=== PATIENT | male | born 1980 | race American Indian/Alaskan Native ===

== ENCOUNTER 2021-01-29 21:50 | Emergency (ER) | payer MEDICAID, OTHER ==
--- NOTE | 2021-01-29 23:27 | EDM.PDOCBH ---
ED HPI GENERAL MEDICAL PROBLEM - General Chief Complaint: Behavioral/Psych Stated Complaint: EVAL [facility]IA [facility] Time Seen by Provider: 01/29/21 21:57 Source of Information: Reports: Patient, EMS, RN History Limitations: Reports: No Limitations - History of Present Illness INITIAL COMMENTS - FREE TEXT/NARRATIVE: Presents the emergency room today via EMS and police escort secondary to concerns that he was acting strange at home. Per report it was the grandmother that called in the concern patient does live with his girlfriend. He was seen on Sunday and shortly [place] for psychiatric issues with combative behavior that was reported. Patient states that he seen his grandfather (his grandfather in 2006 per patient report) patient states he was seen his grandfather and his dog's eyes. He is talking somewhat tangentially about this is not making sense. But otherwise does answer questions appropriately is that he is in [place] he denies any suicidal ideation or homicidal ideation he has been calm and cooperative for us here in the emergency room PMH--hx narcotic abuse (percocet), hx alcohol abuse Meds--denies NKDA Tob--1ppd EtOH--reports not recently, does state he has a significant alcohol abuse history Drugs--patient states last use of narcotics (percocet that he snorts) was in August, he does state he smoked marijuana today. denies any methamphetami ne/heroin/cocaine use/abuse history Patient has not had COVID immunization by report right foot Pain Score (Numeric/FACES): 6 - Related Data Allergies Allergy/AdvReac Type Severity Reaction Status Date / Time No Known Allergies Allergy Verified 01/29/21 22:09 Home Meds: Home Meds NK [No Known Home Meds] 01/29/21 [History] Past Medical History Musculoskeletal History: Reports: Fracture, Other (See Below) Other Musculoskeletal History: right arm fx Psychiatric History: Reports: Hallucinations Social & Family History - Tobacco Use Tobacco Use Status *Q: Current Every Day Tobacco User Years of Tobacco use: 25 Packs/Tins Daily: 1 - Recreational Drug Use Recreational Drug Use: Yes Drug Use in Last 12 Months: Yes Recreational Drug Type: Reports: Marijuana/Hashish ED ROS GENERAL - Review of Systems Review Of Systems: Comprehensive ROS is negative, except as noted in HPI. Constitutional: Reports: No Symptoms HEENT: Reports: No Symptoms Respiratory: Reports: No Symptoms Cardiovascular: Reports: No Symptoms Endocrine: Reports: No Symptoms GI/Abdominal: Reports: No Symptoms : Reports: No Symptoms Musculoskeletal: Reports: No Symptoms Skin: Reports: No Symptoms Neurological: Reports: No Symptoms Psychiatric: Reports: Hallucinations. Denies: Homicidal Ideation, Suicidal Ideation Hematologic/Lymphatic: Reports: No Symptoms Immunologic: Reports: No Symptoms ED EXAM, BEHAVIORAL HEALTH - Physical Exam Exam: See Below Exam Limited By: No Limitations General Appearance: Alert, WD/WN, No Apparent Distress Eye Exam: Bilateral Eye: EOMI, Normal Inspection, PERRL Ears: Normal External Exam, Hearing Grossly Normal Nose: Normal Inspection Throat/Mouth: Normal Inspection, Normal Oropharynx, Normal Voice, No Airway Compromise Head: Atraumatic, Normocephalic Neck: Normal Inspection, Supple, Non-Tender, Full Range of Motion Respiratory/Chest: No Respiratory Distress, Lungs Clear, Normal Breath Sounds, Chest Non-Tender Cardiovascular: Normal Peripheral Pulses, Regular Rate, Rhythm, No Edema, No Murmur GI/Abdominal: Normal Bowel Sounds, Soft, Non-Tender (Male) Exam: Deferred Rectal (Males) Exam: Deferred Back Exam: Normal Inspection, Full Range of Motion Extremities: Normal Range of Motion, Normal Capillary Refill Neurological: Alert, Normal Mood/Affect, Normal Gait, No Motor/Sensory Deficits, Oriented x 3 Psychiatric: Alert, Normal Affect, Normal Cognition Skin Exam: Warm, Dry, Intact, Normal color COURSE, BEHAVIORAL HEALTH COMP - Course Vital Signs: Last Vital Signs Temp 99.7 F 01/29/21 22:12 Pulse 107 H 01/29/21 22:12 Resp 13 01/29/21 22:12 BP 172/103 H 01/29/21 22:12 Pulse Ox 99 01/29/21 22:12 Orders, Labs, Meds: Active Orders 24 hr Category Date Time Status Regular Diet [DIET] Diet 01/29/21 Breakfast Active Chest 1V Frontal [CR] Stat Exams 01/29/21 23:16 Taken Laboratory Tests 01/29/21 01/29/21 01/29/21 Range/Units 22:10 22:10 22:10 WBC 20.7 H (4.5-11.0) K/uL RBC 5.33 (4.30-5.90) M/uL Hgb 15.0 (12.0-15.0) g/dL Hct 45.9 (40.0-54.0) % MCV 86 (80-98) fL MCH 28 (27-31) pg MCHC 33 (32-36) % Plt Count 381 (150-400) K/uL Neut % (Auto) 78.7 H (36-66) % Lymph % (Auto) 13.3 L (24-44) % Mccormick % (Auto) 7.4 H (2-6) % Eos % (Auto) 0.4 L (2-4) % Baso % (Auto) 0.2 (0-1) % Sodium 136 L (140-148) mmol/L Potassium 4.0 (3.6-5.2) mmol/L Chloride 102 (100-108) mmol/L Carbon Dioxide 27 (21-32) mmol/L Anion Gap 11.0 (5.0-14.0) mmol/L BUN 15 (7-18) mg/dL Creatinine 1.0 (0.8-1.3) mg/dL Est Cr Clr Drug Dosing 101.39 mL/min Estimated GFR (MDRD) > 60 (>60) Glucose 102 (74-106) mg/dL Calcium 9.0 (8.5-10.1) mg/dL Total Bilirubin 0.3 (0.2-1.0) mg/dL AST 20 (15-37) U/L ALT 40 (12-78) U/L Alkaline Phosphatase 88 (46-116) U/L Total Protein 7.5 (6.4-8.2) g/dL Albumin 3.6 (3.4-5.0) g/dL Globulin 3.9 H (2.3-3.5) g/dL Albumin/Globulin Ratio 0.9 L (1.2-2.2) Free T4 1.54 H (0.76-1.46) ng/dL Urine Color (YELLOW) Urine Appearance (CLEAR) Urine pH (5.0-8.0) Ur Specific Bentley (1.008-1.030) Urine Protein (NEGATIVE) mg/dL Urine Glucose (UA) (NEGATIVE) mg/dL Urine Ketones (NEGATIVE) mg/dL Urine Occult Blood (NEGATIVE) Urine Nitrite (NEGATIVE) Urine Bilirubin (NEGATIVE) Urine Urobilinogen (0.2-1.0) EU/dL Ur Leukocyte Esterase (NEGATIVE) Urine RBC (0-5) Urine WBC (0-5) Ur Epithelial Cells Amorphous Sediment Urine Bacteria Urine Mucus Urine Opiates Screen (NEGATIVE) Ur Oxycodone Screen (NEGATIVE) Urine Methadone Screen (NEGATIVE) Ur Propoxyphene Screen (NEGATIVE) Ur Barbiturates Screen (NEGATIVE) Ur Tricyclics Screen (NEGATIVE) Ur Phencyclidine Scrn (NEGATIVE) Ur Amphetamine Screen (NEGATIVE) U Methamphetamines Scrn (NEGATIVE) Urine MDMA Screen (NEGATIVE) U Benzodiazepines Scrn (NEGATIVE) U Cocaine Metab Screen (NEGATIVE) U Marijuana (THC) Screen (NEGATIVE) Ethyl Alcohol < 3 mg/dL SARS-CoV-2 RNA (ELI) (NEGATIVE) 01/29/21 01/29/21 01/29/21 Range/Units 22:15 22:15 22:15 WBC (4.5-11.0) K/uL RBC (4.30-5.90) M/uL Hgb (12.0-15.0) g/dL Hct (40.0-54.0) % MCV (80-98) fL MCH (27-31) pg MCHC (32-36) % Plt Count (150-400) K/uL Neut % (Auto) (36-66) % Lymph % (Auto) (24-44) % Mccormick % (Auto) (2-6) % Eos % (Auto) (2-4) % Baso % (Auto) (0-1) % Sodium (140-148) mmol/L Potassium (3.6-5.2) mmol/L Chloride (100-108) mmol/L Carbon Dioxide (21-32) mmol/L Anion Gap (5.0-14.0) mmol/L BUN (7-18) mg/dL Creatinine (0.8-1.3) mg/dL Est Cr Clr Drug Dosing mL/min Estimated GFR (MDRD) (>60) Glucose (74-106) mg/dL Calcium (8.5-10.1) mg/dL Total Bilirubin (0.2-1.0) mg/dL AST (15-37) U/L ALT (12-78) U/L Alkaline Phosphatase (46-116) U/L Total Protein (6.4-8.2) g/dL Albumin (3.4-5.0) g/dL Globulin (2.3-3.5) g/dL Albumin/Globulin Ratio (1.2-2.2) Free T4 (0.76-1.46) ng/dL Urine Color Yellow (YELLOW) Urine Appearance Clear (CLEAR) Urine pH 6.0 (5.0-8.0) Ur Specific Bentley 1.025 (1.008-1.030) Urine Protein Negative (NEGATIVE) mg/dL Urine Glucose (UA) Negative (NEGATIVE) mg/dL Urine Ketones Negative (NEGATIVE) mg/dL Urine Occult Blood Negative (NEGATIVE) Urine Nitrite Negative (NEGATIVE) Urine Bilirubin Negative (NEGATIVE) Urine Urobilinogen 0.2 (0.2-1.0) EU/dL Ur Leukocyte Esterase Negative (NEGATIVE) Urine RBC 0-5 (0-5) Urine WBC 0-5 (0-5) Ur Epithelial Cells Not seen Amorphous Sediment Not seen Urine Bacteria Rare Urine Mucus Many Urine Opiates Screen Negative (NEGATIVE) Ur Oxycodone Screen Negative (NEGATIVE) Urine Methadone Screen Negative (NEGATIVE) Ur Propoxyphene Screen Negative (NEGATIVE) Ur Barbiturates Screen Negative (NEGATIVE) Ur Tricyclics Screen Negative (NEGATIVE) Ur Phencyclidine Scrn Negative (NEGATIVE) Ur Amphetamine Screen Negative (NEGATIVE) U Methamphetamines Scrn Negative (NEGATIVE) Urine MDMA Screen Negative (NEGATIVE) U Benzodiazepines Scrn Negative (NEGATIVE) U Cocaine Metab Screen Negative (NEGATIVE) U Marijuana (THC) Screen Presumptive positive H (NEGATIVE) Ethyl Alcohol mg/dL SARS-CoV-2 RNA (ELI) Negative (NEGATIVE) Re-Assessment/Re-Exam: 2315--labs reviewed, noted for elevated WBC-20.7 w/ neutrophils 78.7%. also noted to have mild elevation of free T4-1.54. UA negative, CMP negative, UDS + marijuana as he reports, negative EtOH. will obtain chest film to r/o any respiratory illness/findings that may be related to elevated WBC. if negative then will be medically cleared for mobile crisis evaluation. it appears based on negative psychiatric history reported, hx substance abuse, hx alcohol abuse and today's reported use of marijuana that this last item is cause of his behavior. marijuana may have been laced with an unknown substance or this is just his response to marijuana. 8010--ER notes from [place] on 25 January in which patient presented secondary to unusual behavior in which law enforcement was contacted as well as patient being transported to that facility via EMS and what was notated is a nonverbal status after being agitated and aggressive as well as having to have been tased. It is noted on their evaluation that it was negative other than elevated white blood cell count/leukocytosis he had a urine drug screen positive for Suboxone and THC and elevated CK level. Also noted that patient did wake up and while he was in the emergency room he told the ER staff that he was seeing monsters and everything in the color purple he then jumped out of his bed pulled off his IV and ran through the night ER ER department naked salting some ER employees requiring medication and four-point restraint for control of his acute psychotic event. He was then transferred to [facility] in which she was admitted and discharged on per family's report. Patient's mother and girlfriend are out in the emergency room waiting area today I did go out and discussed with him their concerns they state that his behavior continues to be erratic and unusual although he is somewhat calm [place] in nature compared to previous episodes they felt that he was starting to escalate which is why they called law enforcement and EMS to have him brought in for further evaluation. As I have noted in my exam they report that he is having hallucinations seeing things and talking erratically. Not aware of what transpired during hospitalization at [place]. 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 But no further recommendations. He did verbalize understanding of what our plan of care is at this time we are waiting mobile crisis evaluation and recommendations 0019--chest film 1V no acute findings of concern, final radiology reading is pending at this time. negative COVID swab. at this time is medically cleared for mobile crisis evaluation. [employer] notified Medical Clearance: 01/30/21 00:21 medically cleared for mobile crisis/further psychiatric evaluation Discharge vs Psych Eval/Treatment:: 01/30/21 02:31 no response from mobile crisis after multiple attempts over the last 3 hours. patient is not suicidal. he continues to state this on repeat questioning by myself and [employer]. He states he is ready to go home. he is no longer exhibiting signs of hallucinations, is not combative in nature. he is restless coming out of the room multiple times to see when he can leave. easily redirected back to room, aware that his family is on the way. at this time will d/c to family. they have f/u in [place] with PCM on Sunday. will instruct patient's girlfriend at time of her arrival that they can contact mobile crisis directly for phone interview if needed or may return to the ER for further evaluation of concerns if needed sooner Departure - Departure Time of Disposition: 02:36 Disposition: Home, Self-Care 01 Clinical Impression: Hallucinations, Marijuana use - Discharge Information *PRESCRIPTION DRUG MONITORING PROGRAM REVIEWED*: Not Applicable *COPY OF PRESCRIPTION DRUG MONITORING REPORT IN PATIENT ROBBY: Not Applicable Instructions: Preventing Marijuana Misuse, Psychosis Referrals: PCP,None [Primary Care Provider] - Forms: ED Department Discharge Additional Instructions: Was noted on report and here in the emergency room he did admit to seeing his grandfather was having hallucinations. There were no acute findings medically other than leukocytosis which in comparison to previous ER visit in [place] several days ago is relatively unchanged. Have attempted to provide mobile crisis interview with no success after 3 hours. At this time I have discharged you to home. You guys may contact mobile [employer] yourselves for telephone interviews as well as you have an appointment scheduled in [place] with your primary care provider on Sunday please keep that appointment. If further concerns or changes occur in behavior then return to the emergency room for further evaluation Sepsis Event Note (ED) - Evaluation Sepsis Screening Result: No Definite Risk - Focused Exam Vital Signs: Vital Signs Temp Pulse Resp BP Pulse Ox 01/29/21 22:12 99.7 F 107 H 13 172/103 H 99 01/29/21 22:10 99.7 F 107 H 13 172/103 H 99 - My Orders Last 24 Hours: My Active Orders 01/29/21 Breakfast Regular Diet [DIET] 01/29/21 23:16 Chest 1V Frontal [CR] Stat - Assessment/Plan Last 24 Hours: My Active Orders 01/29/21 Breakfast Regular Diet [DIET] 01/29/21 23:16 Chest 1V Frontal [CR] Stat
--- NOTE | 2021-01-31 09:48 | CR ---
CHEST: Portable 01/29/2021 at 11:44 PM CLINICAL HISTORY:Elevated white count COMPARISON:None FINDINGS: The heart size, pulmonary vascularity and hilar structures are normal. No infiltrate effusion or pneumothorax is seen. IMPRESSION: No acute cardiopulmonary process.
== END 2021-01-30 02:50 | disposition home or self-care (01) ==
LOC: JP.ED 21:50
DX: R44.3 Hallucinations, unspecified (principal); F12.90 Cannabis use, unspecified, uncomplicated; Z72.0 Tobacco use; Z20.822 Contact with and (suspected) exposure to COVID-19
CPT/HCPCS: 36415; 71045; 71045-26; 80053; 80305-QW; 80307; 81001; 84439; 85025; 99285-25; U0002

== ENCOUNTER 2023-07-12 10:54 | Emergency (ER) | payer MEDICAID, OTHER ==
[2023-07-12 11:15] LABS: BASOPHILS ABSOLUTE AUTO 0.04 K/uL (0.00-0.10); BASOPHILS PERCENT AUTO 0.2 % (0.1-1.3); EOSINOPHILS ABSOLUTE AUTO 0.09 K/uL (0.00-0.40); EOSINOPHILS PERCENT AUTO 0.5 % (0.0-5.4); HEMATOCRIT 43.6 % (38.4-49.7); HEMOGLOBIN 14.6 g/dL (12.9-16.9); IMMATURE GRAN ABSOLUTE AUTO 0.11 K/uL (0.00-0.23); IMMATURE GRAN PERCENT AUTO 0.7 % (0.0-0.7); LYMPHOCYTES ABSOLUTE AUTO 4.34 K/uL (0.8-3.3); LYMPHOCYTES PERCENT AUTO 25.7 % (11.4-47.7); MEAN CORPUSCULAR HEMOGLOBIN 27.7 pg (31.6-35.5); MEAN CORPUSCULAR HGB CONC 33.5 g/dL (31.6-35.5); MEAN CORPUSCULAR VOLUME 82.6 fL (81.4-99.0); MONOCYTES ABSOLUTE AUTO 0.74 K/uL (0.20-0.90); MONOCYTES PERCENT AUTO 4.4 % (3.3-12.6); NEUTROPHILS PERCENT AUTO 68.5 % (40.0-78.1); PLATELET COUNT,PLT 344 K/uL (130-375); RED BLOOD CELL COUNT 5.28 M/uL (4.14-5.76); WHITE BLOOD CELL COUNT,WBC 16.9 K/uL (3.2-11.0)
[2023-07-12 11:20] LABS: APPEARANCE,URINE SLIGHTLY CLOUDY (CLEAR); BILIRUBIN,URINE NEGATIVE (NEGATIVE); COLOR,URINE YELLOW (YELLOW); GLUCOSE,URINE NEGATIVE (NEGATIVE); KETONES,URINE NEGATIVE (NEGATIVE); LEUKOCYTE ESTERASE,URINE NEGATIVE (NEGATIVE); NITRITE,URINE NEGATIVE (NEGATIVE); OCCULT BLOOD,URINE NEGATIVE (NEGATIVE); PH,URINE 5.5 (5.0-8.0); PROTEIN,URINE NEGATIVE (NEGATIVE); UROBILINOGEN,URINE 0.2 EU/dL (0.2-1.0)
[2023-07-12 11:26] LABS: AMPHETAMINES SCREEN, URINE NEGATIVE (NEGATIVE); BARBITURATE SCREEN,URINE NEGATIVE (NEGATIVE); BENZODIAZEPINES SCREEN,URINE NEGATIVE (NEGATIVE); METHADONE SCREEN, URINE NEGATIVE (NEGATIVE); METHAMPHETAMINES SCREEN, URINE NEGATIVE (NEGATIVE); OXYCODONE SCREEN,URINE NEGATIVE (NEGATIVE); PROPOXYPHENE SCREEN,URINE NEGATIVE (NEGATIVE)
[2023-07-12 11:27] LABS: THC SCREEN,URINE 50 NG/ML PRESUMPTIVE POSITIVE (NEGATIVE)
[2023-07-12 11:30] LABS: AMORPHOUS SEDIMENT,URINE RARE; BACTERIA,URINE NOT SEEN; EPITHELIAL CELLS,URINE NOT SEEN; MUCUS,URINE NOT SEEN; RBC,URINE NOT SEEN (0-5); WBC,URINE NOT SEEN (0-5)
[2023-07-12 11:39] LABS: PROTHROMBIN TIME 10.2 sec (9.2-10.6); PTT,PARTIAL THROMBOPLSTIN TIME 25.9 sec (21.8-27.3)
[2023-07-12 11:42] LABS: BLOOD UREA NITROGEN,BUN 13 mg/dL (7-18); CALCIUM 8.6 mg/dL (8.5-10.1); CARBON DIOXIDE,CO2 26 mmol/L (21-32); CHLORIDE,CL 101 mmol/L (100-108); CREATININE 0.8 mg/dL (0.8-1.3); EST CRCL DRUG DOSING (CG) 120.29 mL/min; ESTIMATED GFR 113 mL/min (>60); GLUCOSE RANDOM 117 mg/dL (74-106); MAGNESIUM 1.6 mg/dL (1.8-2.4); PHOSPHORUS 3.6 mg/dL (2.5-4.9); POTASSIUM,K 3.5 mmol/L (3.6-5.2); PRO B-TYPE NATRIUR PEPT,BNPPRO 30 pg/mL (5-125); SODIUM,NA 138 mmol/L (140-148)
[2023-07-12] MEDS: Sodium Chloride 0.9% 1,000 ML IV SCH (11:46)
[2023-07-12 11:47] LABS: ANION GAP 14.5 mmol/L (5.0-14.0); TROPONIN I HIGH SENSITIVITY < 4.0 pg/mL (<=60.3)
== END 2023-07-12 14:00 | disposition home or self-care (01) ==
LOC: JP.ED 10:54
DX: R07.89 Other chest pain (principal); R00.0 Tachycardia, unspecified; Z79.899 Other long term (current) drug therapy
CPT/HCPCS: 36415; 71046; 80048; 80305; 81001; 83735; 83880; 84100; 84484; 85025; 85379; 85610; 85730; 96360; 96361; 99285; J7030

== ENCOUNTER 2023-08-11 13:05 | Emergency (ER) | payer MEDICAID ==
[2023-08-11 15:02] LABS: BASOPHILS ABSOLUTE AUTO 0.04 K/uL (0.00-0.10); BASOPHILS PERCENT AUTO 0.2 % (0.1-1.3); EOSINOPHILS ABSOLUTE AUTO 0.03 K/uL (0.00-0.40); EOSINOPHILS PERCENT AUTO 0.2 % (0.0-5.4); HEMATOCRIT 42.8 % (38.4-49.7); HEMOGLOBIN 14.4 g/dL (12.9-16.9); IMMATURE GRAN PERCENT AUTO 0.6 % (0.0-0.7); LYMPHOCYTES ABSOLUTE AUTO 3.95 K/uL (0.8-3.3); LYMPHOCYTES PERCENT AUTO 24.6 % (11.4-47.7); MEAN CORPUSCULAR HEMOGLOBIN 27.7 pg (31.6-35.5); MEAN CORPUSCULAR HGB CONC 33.6 g/dL (31.6-35.5); MEAN CORPUSCULAR VOLUME 82.3 fL (81.4-99.0); MONOCYTES ABSOLUTE AUTO 1.12 K/uL (0.20-0.90); NEUTROPHILS ABSOLUTE AUTO 10.82 K/uL (1.0-7.6); NEUTROPHILS PERCENT AUTO 67.4 % (40.0-78.1); PLATELET COUNT,PLT 362 K/uL (130-375); WHITE BLOOD CELL COUNT,WBC 16.1 K/uL (3.2-11.0)
[2023-08-11 15:04] LABS: APPEARANCE,URINE SLIGHTLY CLOUDY (CLEAR); BILIRUBIN,URINE NEGATIVE (NEGATIVE); COLOR,URINE YELLOW (YELLOW); GLUCOSE,URINE NEGATIVE (NEGATIVE); KETONES,URINE 15 mg/dL (NEGATIVE); LEUKOCYTE ESTERASE,URINE NEGATIVE (NEGATIVE); NITRITE,URINE NEGATIVE (NEGATIVE); OCCULT BLOOD,URINE NEGATIVE (NEGATIVE); PROTEIN,URINE NEGATIVE (NEGATIVE); UROBILINOGEN,URINE 0.2 EU/dL (0.2-1.0)
[2023-08-11 15:10] LABS: AMPHETAMINES SCREEN, URINE NEGATIVE (NEGATIVE); BARBITURATE SCREEN,URINE NEGATIVE (NEGATIVE); BENZODIAZEPINES SCREEN,URINE NEGATIVE (NEGATIVE); METHADONE SCREEN, URINE NEGATIVE (NEGATIVE); METHAMPHETAMINES SCREEN, URINE NEGATIVE (NEGATIVE); OXYCODONE SCREEN,URINE NEGATIVE (NEGATIVE); PROPOXYPHENE SCREEN,URINE NEGATIVE (NEGATIVE)
[2023-08-11 15:11] LABS: THC SCREEN,URINE 50 NG/ML PRESUMPTIVE POSITIVE (NEGATIVE)
[2023-08-11 15:14] LABS: AMORPHOUS SEDIMENT,URINE MODERATE; BACTERIA,URINE RARE; EPITHELIAL CELLS,URINE NOT SEEN; MUCUS,URINE MANY; RBC,URINE 0-5 (0-5); WBC,URINE 0-5 (0-5)
[2023-08-11 15:18] LABS: PROTHROMBIN TIME 10.4 sec (9.2-10.6)
[2023-08-11 15:27] LABS: A/G RATIO 0.9 (1.2-2.2); ALANINE AMINOTRANSFERASE,ALT 46 U/L (12-78); ALBUMIN 3.7 g/dL (3.4-5.0); ALKALINE PHOSPHATASE 115 U/L (46-116); ASPARTATE AMNIOTRANSFERASE,AST 37 U/L (15-37); BILIRUBIN TOTAL 0.3 mg/dL (0.2-1.0); BLOOD UREA NITROGEN,BUN 11 mg/dL (7-18); CALCIUM 8.9 mg/dL (8.5-10.1); CARBON DIOXIDE,CO2 25 mmol/L (21-32); CHLORIDE,CL 103 mmol/L (100-108); CREATININE 0.9 mg/dL (0.8-1.3); ESTIMATED GFR 109 mL/min (>60); GLUCOSE RANDOM 100 mg/dL (74-106); MAGNESIUM 2.2 mg/dL (1.8-2.4); POTASSIUM,K 3.5 mmol/L (3.6-5.2); PROTEIN TOTAL,TP 7.9 g/dL (6.4-8.2); SODIUM,NA 140 mmol/L (140-148); T4 FREE 1.58 ng/dL (0.76-1.46)
[2023-08-11 15:29] LABS: ANION GAP 15.5 mmol/L (5.0-14.0)
[2023-08-11] MEDS: LORazepam 1 MG Tab PO ONE (17:52)
[2023-08-11 18:28] LABS: CORONAVIRUS COVID-19 NAA NEGATIVE (NEGATIVE); INFLUENZA A NAA NEGATIVE (NEGATIVE); INFLUENZA B NAA NEGATIVE (NEGATIVE); RESPIRATORY SYNCYTIAL VIR NAA NEGATIVE (NEGATIVE)
[2023-08-11] MEDS: Haloperidol 5 MG Tab PO ONE (20:05)
== END 2023-08-11 21:05 ==
LOC: JP.ED 13:05
DX: F20.0 Paranoid schizophrenia (principal); I10 Essential (primary) hypertension; F17.210 Nicotine dependence, cigarettes, uncomplicated; Z79.899 Other long term (current) drug therapy
CPT/HCPCS: 0241U; 36415; 80053; 80143; 80179; 80305; 80307; 81001; 82140; 83735; 84439; 85025; 85610; 99285; A9270

== ENCOUNTER 2023-09-06 15:56 | Emergency (ER) | payer MEDICAID ==
[2023-09-06] MEDS: Nicotine Polacrilex 2 MG Gum CHEW PRN (19:04)
[2023-09-06 19:13] LABS: BASOPHILS ABSOLUTE AUTO 0.04 K/uL (0.00-0.10); BASOPHILS PERCENT AUTO 0.2 % (0.1-1.3); EOSINOPHILS PERCENT AUTO 0.6 % (0.0-5.4); HEMATOCRIT 42.3 % (38.4-49.7); HEMOGLOBIN 14.1 g/dL (12.9-16.9); IMMATURE GRAN ABSOLUTE AUTO 0.06 K/uL (0.00-0.23); IMMATURE GRAN PERCENT AUTO 0.3 % (0.0-0.7); LYMPHOCYTES ABSOLUTE AUTO 3.07 K/uL (0.8-3.3); LYMPHOCYTES PERCENT AUTO 17.7 % (11.4-47.7); MEAN CORPUSCULAR HEMOGLOBIN 27.7 pg (31.6-35.5); MEAN CORPUSCULAR HGB CONC 33.3 g/dL (31.6-35.5); MEAN CORPUSCULAR VOLUME 83.1 fL (81.4-99.0); MONOCYTES ABSOLUTE AUTO 0.95 K/uL (0.20-0.90); MONOCYTES PERCENT AUTO 5.5 % (3.3-12.6); NEUTROPHILS ABSOLUTE AUTO 13.13 K/uL (1.0-7.6); NEUTROPHILS PERCENT AUTO 75.7 % (40.0-78.1); PLATELET COUNT,PLT 384 K/uL (130-375); RED BLOOD CELL COUNT 5.09 M/uL (4.14-5.76); WHITE BLOOD CELL COUNT,WBC 17.4 K/uL (3.2-11.0)
[2023-09-06 19:44] LABS: A/G RATIO 0.8 (1.2-2.2); ALANINE AMINOTRANSFERASE,ALT 31 U/L (12-78); ALBUMIN 3.4 g/dL (3.4-5.0); ALKALINE PHOSPHATASE 126 U/L (46-116); ASPARTATE AMNIOTRANSFERASE,AST 25 U/L (15-37); BILIRUBIN TOTAL 0.2 mg/dL (0.2-1.0); BLOOD UREA NITROGEN,BUN 17 mg/dL (7-18); CALCIUM 8.7 mg/dL (8.5-10.1); CARBON DIOXIDE,CO2 27 mmol/L (21-32); CHLORIDE,CL 102 mmol/L (100-108); CREATININE 0.9 mg/dL (0.8-1.3); EST CRCL DRUG DOSING (CG) 106.92 mL/min; ESTIMATED GFR 109 mL/min (>60); GLUCOSE RANDOM 113 mg/dL (74-106); POTASSIUM,K 3.7 mmol/L (3.6-5.2); PROTEIN TOTAL,TP 7.5 g/dL (6.4-8.2); SODIUM,NA 137 mmol/L (140-148)
[2023-09-06 19:48] LABS: ANION GAP 11.7 mmol/L (5.0-14.0)
[2023-09-06 21:19] LABS: APPEARANCE,URINE CLEAR (CLEAR); BILIRUBIN,URINE NEGATIVE (NEGATIVE); COLOR,URINE YELLOW (YELLOW); GLUCOSE,URINE NEGATIVE (NEGATIVE); KETONES,URINE NEGATIVE (NEGATIVE); LEUKOCYTE ESTERASE,URINE NEGATIVE (NEGATIVE); NITRITE,URINE NEGATIVE (NEGATIVE); OCCULT BLOOD,URINE TRACE-INTACT (NEGATIVE); PH,URINE 5.5 (5.0-8.0); PROTEIN,URINE NEGATIVE (NEGATIVE); UROBILINOGEN,URINE 0.2 EU/dL (0.2-1.0)
[2023-09-06 21:24] LABS: AMPHETAMINES SCREEN, URINE NEGATIVE (NEGATIVE); BARBITURATE SCREEN,URINE NEGATIVE (NEGATIVE); BENZODIAZEPINES SCREEN,URINE NEGATIVE (NEGATIVE); METHAMPHETAMINES SCREEN, URINE NEGATIVE (NEGATIVE)
[2023-09-06 21:25] LABS: METHADONE SCREEN, URINE NEGATIVE (NEGATIVE); OXYCODONE SCREEN,URINE NEGATIVE (NEGATIVE); PROPOXYPHENE SCREEN,URINE NEGATIVE (NEGATIVE); THC SCREEN,URINE 50 NG/ML PRESUMPTIVE POSITIVE (NEGATIVE)
[2023-09-06 21:26] LABS: AMORPHOUS SEDIMENT,URINE RARE; BACTERIA,URINE NOT SEEN; EPITHELIAL CELLS,URINE NOT SEEN; MUCUS,URINE NOT SEEN; RBC,URINE 0-5 (0-5); WBC,URINE NOT SEEN (0-5)
[2023-09-06] MEDS: LORazepam 1 MG Tab PO ONE (21:55)
[2023-09-06] MEDS ORDERED: risperiDONE 0.5 MG Tab PO ONE (23:30)
[2023-09-07] MEDS ORDERED: Buprenorphine/Naloxone 8-2 MG Tab.SL ONE (08:24)
[2023-09-07] MEDS ORDERED: amLODIPine 5 MG Tab ONE (08:25)
[2023-09-07] MEDS: Buprenorphine/Naloxone 8-2 MG Tab.SL SL ONE (08:28)
[2023-09-07] MEDS: Acetaminophen 500 MG Tab PO ONE (08:28)
[2023-09-07] MEDS: amLODIPine 5 MG Tab PO ONE (08:28)
== END 2023-09-07 10:30 ==
LOC: JP.ED 15:56
DX: R45.851 Suicidal ideations (principal); R44.3 Hallucinations, unspecified; I10 Essential (primary) hypertension; F17.210 Nicotine dependence, cigarettes, uncomplicated; Z79.899 Other long term (current) drug therapy
CPT/HCPCS: 36415; 80053; 80305-QW; 80307; 81001; 84443; 85025; 93005; 99284; 99285; A9270-GY; J0574-GY